=== PATIENT | male | born 1960 | race Hispanic/Latino ===

== ENCOUNTER → 2016-09-11 | Outpatient (CLI) | payer OTHER ==
--- NOTE | 2016-09-11 09:47 | Diagnostic Imaging Report ---
Clinical indication: Patient with pain in left lower quadrant. Patient says he felt a tearing sensation when he was reaching for something high at work. Exam: Limited abdominal ultrasound involving the left lower quadrant in the region of concern. Comparison: None. Findings: Focused ultrasound in the region of concern in the left lower quadrant shows no evidence of abdominal wall defect or evidence of hernia. There is no concern for abnormality seen in the visualized region. Impression: There is no evidence of abdominal wall hernia. Dictated by: Dictated on workstation # [id number]
== END ==
LOC: EDBD → EDSEX 07:58 → RAD 07:58
DX: R10.12 Left upper quadrant pain (principal); R10.32 Left lower quadrant pain
CPT/HCPCS: 76705